=== PATIENT | male | born 1975 | race Caucasian/White ===

== ENCOUNTER 2020-11-19 08:40 | Emergency (ER) | payer OTHER ==
[~2020-11-19] VITALS: Ht 180.3 cm; Wt 145.1 kg
[2020-11-19] MEDS: NEOMYCIN-BACITRACIN-POLYM UNITDOSE PKG TOP OINT TOP ONE (09:10)
[2020-11-19 09:19] VITALS: BP 151/94
== END 2020-11-19 09:29 | disposition home or self-care (01) ==
LOC: ER 08:40
DX: S61.303A Unspecified open wound of left middle finger with damage to nail, initial encounter (principal); W26.8XXA Contact with other sharp object(s), not elsewhere classified, initial encounter; Y93.89 Activity, other specified; Y92.89 Other specified places as the place of occurrence of the external cause; Y99.8 Other external cause status

== ENCOUNTER 2025-05-24 21:38 | Emergency (ER) | payer OTHER ==
[~2025-05-24] VITALS: Ht 180.3 cm; Wt 113.4 kg
--- NOTE | 2025-05-24 22:23 | ED.PDOC ---
History of Present Illness HPI Comments 49 y/o M presents with c/c partial amputation to 3rd digit on left hand. Patient reports getting digit getting smashed by a closing trash can lid at work. No further acute injuries or associated symptoms endorsed. Chief Complaint: Laceration Time Seen by MD: 21:45 Primary Care Provider: DENIES Reviewed Notes: Nurses Notes, Medications, Allergies Allergies: Coded Allergies: NO KNOWN ALLERGIES (Unverified , 11/19/20) Information Source: Patient Mode of Arrival: Ambulatory Severity: Mild Timing: Hours Duration: Since onset Prehospital treatment: None Past Medical History PAST MEDICAL HISTORY: Denies Surgical History: Denies all surgeries Family History Family History: Reviewed,noncontributory to illness Social History Smoker: Non-Smoker Alcohol: Denies ETOH Use Drugs: Denies Drug Use Lives In: Home All Other Systems: Reviewed and Negative (as per HPI) Physical Exam General Appearance: No Apparent Distress, Obese HEENT: Normal ENT Inspection, Pharynx Normal, TMs Normal Neck: Full Range of Motion, Non-Tender, Normal, Normal Inspection Respiratory: Chest Non-Tender, Lungs Clear, No Accessory Muscle Use, No Respiratory Distress, Normal Breath Sounds Cardiovascular: No Edema, No JVD, No Murmur, No Gallop, Normal Peripheral Pulses, Regular Rate/Rhythm Breast Exam: Deferred Gastrointestinal: No Organomegaly, Non Tender, No Pulsatile Mass, Normal Bowel Sounds, Soft Genitalia: Deferred Pelvic: Deferred Rectal: Deferred Extremities: No calf tenderness, Normal capillary refill, Normal inspection, Normal range of motion, Non-tender, No pedal edema Musculoskeletal : Apperance: Normal Neurologic: Alert, aeroplane pilot II-XII nml as Tested, No Motor Deficits, Normal Affect, Normal Mood, No Sensory Deficits Cerebellar Function: Normal Reflexes: Normal Skin: Dry, Normal Color, Warm, Wounds ( distal tip, complete amputation of 3rd digit of left hand with distal phalanx exposure) Lymphatic: No Adenopathy Was a procedure done? Was a procedure done?: No Differential Dx Considerations may include: amputation, laceration, contusion, anemia, among others X-Ray, Labs, Meds, VS Vital Signs Date Time Temp Pulse Resp B/P (MAP) Pulse Ox O2 Delivery O2 Flow Rate FiO2 05/25/25 01:02 89 18 96 Room Air* 0 21 05/25/25 01:02 97.9 89 18 153/107 (122) 96 97.9 05/24/25 21:42 99.2 87 18 165/99 95 99.2 Current Medications Medications (Trade) Dose Ordered Sig/Donovan Route Start Time Stop Time Status Last Admin Diphtheria/ Tetanus/Acell Pertussis (Boostrix T-Dap) 0.5 ml ONCE ONCE IM 05/25/25 00:45 05/25/25 00:46 DC 05/25/25 01:02 X-Ray, Labs, Meds, VS Comment X-ray shows partial amputation of left hand 3rd digit with possible tuft fracture. Patient need specialty hand surgeon, transfer service called spoke with hand surgeon Sridhar Galvan we will accept patient transfer ER to ER. Currently bleeding is controlled finger wrapped. Patient given tetanus. 1 g of Ancef IM. Digital block of left 3rd digit performed patient notes no pain at this time refusing pain medication. Time of 1ST Reevaluation: 22:15 Reevaluation 1ST: Unchanged Time of 2ND Reevaluation: 23:25 Reevaluation 2ND: Improved Patient Education/Counseling: Diagnosis, Treatment, Need For Follow Up Family Education/Counseling: No Family Present SEPSIS Sepsis Screen Date sepsis recognized/suspect: May 24, 2025 Time Sepsis recognized/suspect: 2141 Recent Procedure: No On Antibiotic Therapy: No Respiratory Rate >20: No Heart Rate >90: No Temp<36 C (96.8 F) or >38.3 C: No SBP <90 or MAP <65 mmHG: No New Acute Mental Status Change: No Is the patient on CPAP, BIPAP,: No Physician Orders L Hand 3v Xray (05/24/25 21:55) Imaging Transfer Request (05/24/25 23:37) Vital Signs Date Time Temp Pulse Resp B/P (MAP) Pulse Ox O2 Delivery O2 Flow Rate FiO2 05/25/25 01:02 89 18 96 Room Air* 0 21 05/25/25 01:02 97.9 89 18 153/107 (122) 96 97.9 05/24/25 21:42 99.2 87 18 165/99 95 99.2 Medications Medications Dose Ordered Sig/Donovan Route Start Time Stop Time Status Last Admin Dose Admin Diphtheria/ Tetanus/Acell Pertussis 0.5 ml ONCE ONCE IM 05/25/25 00:45 05/25/25 00:46 DC 05/25/25 01:02 Departure 1 Departure Time of Disposition: 23:39 Impression: Primary Impression: Amputation finger-complicated Disposition: 04 INTERMEDIATE CARE FACILITY Condition: Stable Discharged With: Self Critical Care Note Critical Care Time?: No Stability Stability form required: No Heart Score Heart Score: Heart Score Response (Comments) Value History N/A 0 EKG N/A 0 Age N/A 0 Risk Factors N/A 0 Troponin N/A 0 Total 0 I personally scribed for ER ([email or web address]) on 05/24/25 at 22:23. Electronically submitted by Juan Reddy [email or web address]). ER May 24, 2025 22:23 OLAYINKA MORGAN [facility] May 24, 2025 23:40
--- NOTE | 2025-05-24 22:51 | DVH ---
CLINICAL INDICATION: 3RD DIGIT AMPUTATION TECHNIQUE: 3 radiographic views of the LEFT HAND were obtained. Comparison: None FINDINGS/IMPRESSION: AMPUTATION OF THE SOFT TISSUES OF THE DISTAL ASPECT OF THE LEFT 3RD DIGIT. There may be absence a small portion of the distal tuft of the left digit
[2025-05-24] MEDS ORDERED: ceFAZolin IM 1GM/2.5ML STERILE WATER IM ONE (23:15)
[2025-05-25 01:02] VITALS: BP 153/107; PULSE 89; RESP 18; TEMP 97.9; O2SAT 96
[2025-05-25] MEDS: TETANUS-DIPTH-ACEL PERTUSSIS 0.5ML SYR Tdap IM ONE (01:02)
== END 2025-05-25 01:23 | disposition short-term general hospital (02) ==
LOC: ER 21:38
DX: S61.223A Laceration with foreign body of left middle finger without damage to nail, initial encounter (principal); Z20.822 Contact with and (suspected) exposure to COVID-19; W23.0XXA Caught, crushed, jammed, or pinched between moving objects, initial encounter; Y93.89 Activity, other specified; Y92.89 Other specified places as the place of occurrence of the external cause; Y99.8 Other external cause status
CPT/HCPCS: 64450; 73130; 90471; 90715; 99285; J0690